=== PATIENT | female | born 1945 | race African-American/Black ===

== ENCOUNTER 2022-12-09 18:42 | Inpatient (IN) | payer MEDICAID ==
[~2022-12-09] VITALS: Ht 142.2 cm; Wt 43.2 kg
[2022-12-09] MEDS ORDERED: AMLO-708 PO (19:19)
[2022-12-09] MEDS ORDERED: QUET50TA24 PO (19:19)
[2022-12-09] MEDS ORDERED: RISP0.5T65 PO (19:19)
[2022-12-09] MEDS ORDERED: normal saline 1000ML IV soln IVB ONE (19:25)
[2022-12-09 19:28] LABS: CLARITY,URINE CLEAR (Clear); COLOR,URINE STRAW (Yellow); GLUCOSE, URINE NEGATIVE (Neg); KETONES,URINE NEGATIVE (Neg); LEUKOCYTE ESTERASE ,URINE NEGATIVE (Neg); NITRITES, URINE NEGATIVE (Neg); OCCULT BLOOD,URINE NEGATIVE (Neg); PROTEIN,URINE NEGATIVE (Neg); UROBILINOGEN,URINE 0.2 E.U/dL (0.2-1.0)
[2022-12-09 19:29] LABS: UA COLLECTION TYPE CLN CATCH MIDSTREAM
[2022-12-09 19:32] LABS: MEAN PLATELET VOLUME 6.3 FL (7.4-10.4)
[2022-12-09 19:33] LABS: BASOPHILS % (AUTO) 0.9 % (0-1); EOSINOPHILS % (AUTO) 0 % (0-6); HEMATOCRIT 38.4 % (35.0-45.0); HEMOGLOBIN 13.1 g/dl (12.0-16.0); LYMPHOCYTES # (AUTO) 1.7 X10'3 (1.1-4.8); LYMPHOCYTES % (AUTO) 29.5 % (21-51); MEAN CORPUSCULAR HEMOGLOBIN 30.8 PG (27.0-31.0); MEAN CORPUSCULAR HGB CONC 34.1 g/dL (33.0-36.5); MEAN CORPUSCULAR VOLUME 90.2 FL (78-98); MONOCYTES # (AUTO) 0.8 X10'3 (0-0.9); MONOCYTES % (AUTO) 14.1 % (2-12); NEUTROPHILS # (AUTO) 3.2 X10'3 (1.8-7.7); NEUTROPHILS % (AUTO) 55.5 % (42-75); PLATELET COUNT 337 X10'3 (140-440); RED BLOOD COUNT 4.25 X10'6 (4.20-5.60); RED CELL DISTRIBUTION WIDTH 13.8 % (11.5-14.5); WHITE BLOOD COUNT 5.7 X10'3 (4.5-11.0)
[2022-12-09 19:41] LABS: ALANINE AMINOTRANSFERASE 19 U/L (12-78); ALBUMIN 3.8 G/DL (3.4-5.0); ALBUMIN/GLOBULIN RATIO 0.8 (1.1-1.5); ALKALINE PHOSPHATASE 135 IU/L (46-116); ANION GAP 7 (8-16); ASPARTATE AMINO TRANSFERASE 19 U/L (10-37); BILIRUBIN,TOTAL 0.4 MG/DL (0.1-1.0); BLOOD UREA NITROGEN 3 MG/DL (7-18); BUN/CREATININE RATIO 4.4 (10.0-20.0); CALCIUM 9.1 MG/DL (8.5-10.1); CHLORIDE 96 MMOL/L (99-107); CREATININE 0.68 MG/DL (0.40-0.90); GLUCOSE 98 MG/DL (70-104); POTASSIUM 4.7 MMOL/L (3.5-5.1); SODIUM 134 MMOL/L (135-145); TOTAL CARBON DIOXIDE 30.9 MMOL/L (24-32); TOTAL PROTEIN 8.6 G/DL (6.4-8.2); eGFR 84 ML/MIN
[2022-12-09] MEDS ORDERED: temazepam 15mg capsule PO PRN (21:00)
--- NOTE | 2022-12-09 23:00 | NUR ---
PT FAMILY MEMBER LEFT TO GO HOME.
[2022-12-09] MEDS ORDERED: morphine 2 MG/ML inj. syringe IV PRN (23:15)
[2022-12-09] MEDS ORDERED: bisacodyl 10mg suppository rectal RC PRN (23:15)
[2022-12-09] MEDS ORDERED: magnesium hydroxide 30ml (MOM) UD suspension PO PRN (23:15)
[2022-12-09] MEDS ORDERED: ondansetron/PF 4mg/2ml inj IV PRN (23:15)
[2022-12-09] MEDS ORDERED: ondansetron 4mg rapidly disintigrating tab PO PRN (23:15)
[2022-12-09] MEDS ORDERED: diphenhydrAMINE 50 mg/ml inj IV PRN (23:15)
[2022-12-09] MEDS ORDERED: acetaminophen 650mg rectal suppository RC PRN (23:15)
[2022-12-09] MEDS ORDERED: HYDROcodone/acetaminophen 5mg/325mg tablet PO PRN (23:15)
[2022-12-09] MEDS ORDERED: diphenhydrAMINE 25mg capsule PO PRN (23:15)
[2022-12-09] MEDS: dextrose 5%-1/2 normal saline 1,000 ML IV SCH (23:15)
[2022-12-09] MEDS ORDERED: acetaminophen 325mg tablet PO PRN ×2 (23:15)
[2022-12-09] MEDS ORDERED: mag hydrox/Alum hydrox/simeth 30ml oral suspension PO PRN (23:15)
[2022-12-09] MEDS ORDERED: diazepam inj 5 MG/ML inj. IV PRN (23:25)
[2022-12-09 23:40] LABS: HEMOGLOBIN A1C 5.6 % (4.5-6.2)
[2022-12-09 23:49] LABS: MAGNESIUM 2.5 MG/DL (1.5-2.4); PHOSPHORUS 4.4 MG/DL (2.3-4.5)
--- NOTE | 2022-12-10 00:03 | NUR ---
ROUNDED ON PT, PT REMOVED TELE MONITOR, BP CUFF, SPO2 FINGER PROBE, AND PULLED OUT IV. PT NEEDS SITTER, NO SITTER AVAILABLE AT THIS TIME. PT CONFUSED AND REFUSING VITALS AT THIS TIME. PT ALSO REFUSING PLACING ANOTHER IV AT THIS TIME.
--- NOTE | 2022-12-10 00:05 | NUR ---
INSTRUCTOR MODELING PATTY NOTIFIED OF PT REFUSAL AND DR RUIZ NOTIFIED WELL.
[2022-12-10 00:11] LABS: APTT 27 SECONDS (22-32)
[2022-12-10 00:21] LABS: CREATINE KINASE 94 U/L (26-192); LIPASE < 50 U/L (73-393)
[2022-12-10] MEDS ORDERED: diazepam inj 5 MG/ML inj. IM ONE (01:25)
--- NOTE | 2022-12-10 01:26 | NUR ---
PT IN ROOM BYSELF SITWALE GONZALESP ON GURNEY AND YELLING AT ITEMS IN THE ROOM. PT MAKING SATEMENTS THAT THERE IS A "MAN BEHIND BED". PT REDIRECTED AND NOTIFIED THAT SHE IS IN THE HOSPITAL AND THERE IS NO ONE IN HER ROOM BEHIND THE BED. PER DR RUIZ, GIVE VALIUM 5MG IM PT DOES NOT HAVE AN IV AT THIS TIME DUE TO REFUSAL.
--- NOTE | 2022-12-10 01:50 | NUR ---
PT YELLING AT STAFF TO "GET OUT OF ROOM", AND HITTING AT STAFF DURING MEDICATION ADMINISTRTATION PER ORDER. PT APPEARS AGITATED AND REFUSING LAB DRAW OR VITALS AT THIS TIME. STAFF LEFT ROOM. PT NOW IN ROOM SINGING TO SELF IN ANOTHER LANGUAGE.
[2022-12-10] MEDS ORDERED: haloperidol lactate 5mg/ml inj ONE (02:51)
[2022-12-10] MEDS ORDERED: LORazepam 2 mg/ml vial ONE (02:52)
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
[2022-12-10] MEDS ORDERED: haloperidol lactate 5mg/ml inj IM ONE (03:00)
[2022-12-10] MEDS ORDERED: LORazepam 2 mg/ml vial IM ONE (03:00)
[2022-12-10] MEDS: dextrose 5%-1/2 normal saline 1,000 ML IV SCH ×2 (07:23→17:14)
[2022-12-10] MEDS: pantoprazole 40mg Tablet.DR PO SCH (07:24)
[2022-12-10 08:04] LABS: BASOPHILS % (AUTO) 0.2 % (0-1); EOSINOPHILS % (AUTO) 0 % (0-6); HEMATOCRIT 39.7 % (35.0-45.0); HEMOGLOBIN 13.5 g/dl (12.0-16.0); LYMPHOCYTES # (AUTO) 0.7 X10'3 (1.1-4.8); LYMPHOCYTES % (AUTO) 15.8 % (21-51); MEAN CORPUSCULAR HEMOGLOBIN 30.9 PG (27.0-31.0); MEAN CORPUSCULAR VOLUME 90.8 FL (78-98); MEAN PLATELET VOLUME 6.5 FL (7.4-10.4); MONOCYTES # (AUTO) 0.5 X10'3 (0-0.9); NEUTROPHILS # (AUTO) 3.4 X10'3 (1.8-7.7); PLATELET COUNT 319 X10'3 (140-440); RED BLOOD COUNT 4.37 X10'6 (4.20-5.60); RED CELL DISTRIBUTION WIDTH 13.3 % (11.5-14.5); WHITE BLOOD COUNT 4.6 X10'3 (4.5-11.0)
--- NOTE | 2022-12-10 09:10 | NUR ---
RECEIVED REPORT FROM DIANE THORNTON
--- NOTE | 2022-12-10 09:26 | NUR ---
RECEIVED REPORT FROM DIANE, 0800 MEDS NOT BEEN GIVEN DUE TO PT ASLEEP, DUE TO ACTIVAN/HALDOL SHOTS
[2022-12-10 09:31] LABS: ALANINE AMINOTRANSFERASE 21 U/L (12-78); ALBUMIN 3.7 G/DL (3.4-5.0); ALBUMIN/GLOBULIN RATIO 0.9 (1.1-1.5); ALKALINE PHOSPHATASE 130 IU/L (46-116); ANION GAP 12 (8-16); ASPARTATE AMINO TRANSFERASE 31 U/L (10-37); BILIRUBIN,TOTAL 0.5 MG/DL (0.1-1.0); BLOOD UREA NITROGEN 3 MG/DL (7-18); BUN/CREATININE RATIO 4.5 (10.0-20.0); CALCIUM 9.4 MG/DL (8.5-10.1); CHLORIDE 97 MMOL/L (99-107); CHOL/HDL RATIO 2.2 (0.00-4.99); CHOLESTEROL 226 MG/DL (0-200); CREATININE 0.67 MG/DL (0.40-0.90); GLUCOSE 97 MG/DL (70-104); HDL CHOLESTEROL 103 MG/DL (35-60); LDL CHOLESTEROL 97 MG/DL (50-100); POTASSIUM 3.4 MMOL/L (3.5-5.1); SODIUM 134 MMOL/L (135-145); TOTAL CARBON DIOXIDE 25.2 MMOL/L (24-32); TRIGLYCERIDES 28 MG/DL (20-135); eGFR > 90 ML/MIN
[2022-12-10] MEDS: docusate sod 100mg capsule PO SCH ×2 (10:00→19:43)
[2022-12-10] MEDS: amLODIPine 5mg tablet PO SCH (10:01)
[2022-12-10] MEDS: heparin, porcine 5000 units/ml vial SQ SCH ×2 (10:02→20:24)
--- NOTE | 2022-12-10 12:16 | NUR ---
ASSISTING GEOSPATIAL IMAGE ANALYST WITH PT CARE, DAUGHTER, KARIME ROMERO, AT BEDSIDE AWARE OF PLAN TO TRANFER TO 4TH FLOOR, PT EVALUATION
--- NOTE | 2022-12-10 12:40 | NUR ---
Patient in room ORTHO 4009. I have received report from Cayla THORNTON from ER and had the opportunity to ask questions and assume patient care.
--- NOTE | 2022-12-10 12:40 | NUR ---
pt taken to room 4009, family at bedside, report given to Makayla CAMERON and Gordy THORNTON.
[2022-12-10 13:00] VITALS: BP 153/95; PULSE 83; RESP 13; TEMP 97.4; O2SAT 100
[2022-12-10] MEDS ORDERED: potassium Cl 40MEQ/1/2NS 520ml 520 ML IV PRN (13:20)
[2022-12-10] MEDS ORDERED: magnesium 4gm in 100ml NS 100 ML IV PRN (13:20)
[2022-12-10] MEDS ORDERED: potassium Cl 20 mEq SR tablet PO PRN ×2 (13:20)
[2022-12-10] MEDS ORDERED: magnesium Cl slow-release 64mg tablet PO PRN (13:20)
[2022-12-10] MEDS ORDERED: magnesium 2GM in 50ml NS 50 ML IV PRN (13:20)
--- NOTE | 2022-12-10 13:28 | NUR ---
Dr. Krishnan seen patient and ordered, PT eval, Ss consult, Case management consult. Swallow eval. All consults were paged for assistance. waiting on response.
--- NOTE | 2022-12-10 14:19 | NUR ---
Patient did well with thin liquids and applesauce lower dentures are poor fitting so would recommend puree diet with thin liquids. Due to alternating LOC should be strict aspiration precautions and be a feeder.
[2022-12-10] MEDS ORDERED: BIMA2.5D EACHEYE (15:23)
--- NOTE | 2022-12-10 16:05 | NUR ---
Dr. Krishnan called back and stated yes the diet can be placed. She also stated that she doesn't want patient to have any sedatives throughout the night. She wants her to be alert and more awake. Advised Dr. Krishnan that patient is still very sleepy and unable to keep her awake to give K replacement. Per Dr. Krishnan ok to give K once fully able to drink.
[2022-12-10] MEDS: K and/or MAG REPLACEMENT MC SCH (19:43)
[2022-12-10] MEDS: risperiDONE 0.5mg tablet PO SCH (20:23)
[2022-12-10] MEDS: QUEtiapine 25mg tablet PO SCH (20:23)
[2022-12-10 22:00] VITALS: BP 133/67; PULSE 101; RESP 18; TEMP 98.2; O2SAT 95
--- NOTE | 2022-12-11 02:46 | NUR ---
Agree with Aquilino MOTOR CHECKER assessment except where I documented my findings.
[2022-12-11] MEDS: dextrose 5%-1/2 normal saline 1,000 ML IV SCH ×2 (03:23→15:15)
[2022-12-11 06:00] VITALS: BP 136/79; PULSE 93; RESP 16; TEMP 98.3; O2SAT 100
--- NOTE | 2022-12-11 06:10 | NUR ---
Patient in room ORTHO 4009. I have received report from Paul CAMERON and had the opportunity to ask questions and assume patient care.
--- NOTE | 2022-12-11 06:10 | NUR ---
Problems reprioritized. Patient report given, questions answered & plan of care reviewed with Lidia CAMERON.
[2022-12-11 06:47] LABS: BASOPHILS % (AUTO) 0.1 % (0-1); EOSINOPHILS % (AUTO) 0 % (0-6); HEMATOCRIT 35.8 % (35.0-45.0); HEMOGLOBIN 12.3 g/dl (12.0-16.0); LYMPHOCYTES # (AUTO) 0.9 X10'3 (1.1-4.8); LYMPHOCYTES % (AUTO) 11.3 % (21-51); MEAN CORPUSCULAR HEMOGLOBIN 30.9 PG (27.0-31.0); MEAN CORPUSCULAR HGB CONC 34.4 g/dL (33.0-36.5); MEAN CORPUSCULAR VOLUME 89.9 FL (78-98); MEAN PLATELET VOLUME 6.5 FL (7.4-10.4); MONOCYTES # (AUTO) 0.8 X10'3 (0-0.9); MONOCYTES % (AUTO) 11.1 % (2-12); NEUTROPHILS # (AUTO) 5.9 X10'3 (1.8-7.7); NEUTROPHILS % (AUTO) 77.5 % (42-75); PLATELET COUNT 314 X10'3 (140-440); RED BLOOD COUNT 3.98 X10'6 (4.20-5.60); RED CELL DISTRIBUTION WIDTH 13.4 % (11.5-14.5); WHITE BLOOD COUNT 7.6 X10'3 (4.5-11.0)
[2022-12-11 07:07] LABS: ALANINE AMINOTRANSFERASE 20 U/L (12-78); ALBUMIN 3.1 G/DL (3.4-5.0); ALBUMIN/GLOBULIN RATIO 0.8 (1.1-1.5); ALKALINE PHOSPHATASE 118 IU/L (46-116); ANION GAP 7 (8-16); ASPARTATE AMINO TRANSFERASE 28 U/L (10-37); BILIRUBIN,TOTAL 0.2 MG/DL (0.1-1.0); BLOOD UREA NITROGEN 5 MG/DL (7-18); BUN/CREATININE RATIO 6.8 (10.0-20.0); CALCIUM 8.6 MG/DL (8.5-10.1); CHLORIDE 96 MMOL/L (99-107); CREATININE 0.73 MG/DL (0.40-0.90); GLUCOSE 122 MG/DL (70-104); POTASSIUM 3.5 MMOL/L (3.5-5.1); SODIUM 130 MMOL/L (135-145); TOTAL CARBON DIOXIDE 26.6 MMOL/L (24-32); TOTAL PROTEIN 7.1 G/DL (6.4-8.2); eGFR > 90 ML/MIN
[2022-12-11] MEDS: pantoprazole 40mg Tablet.DR PO SCH (07:45)
[2022-12-11] MEDS: docusate sod 100mg capsule PO SCH ×2 (07:45→08:00)
[2022-12-11] MEDS: amLODIPine 5mg tablet PO SCH (07:46)
[2022-12-11] MEDS: heparin, porcine 5000 units/ml vial SQ SCH ×3 (07:48→20:47)
[2022-12-11 08:00] VITALS: RESP 16; O2SAT 100
[2022-12-11] MEDS: K and/or MAG REPLACEMENT MC SCH ×2 (08:00→20:00)
--- NOTE | 2022-12-11 08:06 | NUR ---
Patient refused her colace and heparin injection. When I explained to her that this is important to take she became angry and stated that she doesn't want to take it. non- admin medications.
--- NOTE | 2022-12-11 09:00 | NUR ---
Checked on patient and she is calm resting bed. Patient states that she is thirsty. I gave her water. Patient is not trying to get out of bed, no signs of agitation.
[2022-12-11 10:00] VITALS: BP 125/71; PULSE 85; RESP 16; TEMP 96.1; O2SAT 100
[2022-12-11] MEDS: acetaminophen 325mg tablet PO SCH ×2 (11:35→17:39)
--- NOTE | 2022-12-11 13:32 | NUR ---
PAGER ID: [phone] MESSAGE: [phone]- John Perry- Patient daughter is in the room and is ready for meeting. Pls advise? KATHY Murillo [phone]
--- NOTE | 2022-12-11 15:05 | NUR ---
GAS STATION SUPERVISOR documentation: I have reviewed and agree with all interventions, assessments performed and documented by Lidia Marx LVN.
[2022-12-11 18:00] VITALS: BP 117/66; PULSE 93; RESP 16; TEMP 98; O2SAT 100
--- NOTE | 2022-12-11 18:47 | NUR ---
Patient in room ORTHO 4009. I have received report from Paul CAMERON and had the opportunity to ask questions and assume patient care. Addendum: 12/11/22 at 1848 by Lidia Davidson LVN, LVN correction: Problems reprioritized. Patient report given, questions answered & plan of care reviewed with Paul CAMERON.
[2022-12-11] MEDS: risperiDONE 0.5mg tablet PO SCH (20:46)
[2022-12-11] MEDS: docusate sodium 100mg/10ml UD cup PO SCH (20:46)
[2022-12-11] MEDS: QUEtiapine 25mg tablet PO SCH (20:46)
[2022-12-11 22:00] VITALS: BP 133/75; PULSE 67; RESP 16; TEMP 97.9; O2SAT 97
[2022-12-12] MEDS: dextrose 5%-1/2 normal saline 1,000 ML IV SCH ×2 (00:33→11:48)
--- NOTE | 2022-12-12 02:02 | NUR ---
Agree with Magdalene CAMERON assessment except where I documented my findings.
[2022-12-12 06:00] VITALS: BP_SYST 140; BP_DIAS 56; BP_DIAS 62; PULSE 79; PULSE 80; RESP 16; RESP 17; TEMP 97.3; TEMP 97.6; O2SAT 96; O2SAT 98
[2022-12-12] MEDS: pantoprazole 40mg Tablet.DR PO SCH (07:30)
[2022-12-12 07:47] LABS: BASOPHILS % (AUTO) 0.2 % (0-1); EOSINOPHILS % (AUTO) 0 % (0-6); HEMATOCRIT 34.6 % (35.0-45.0); HEMOGLOBIN 11.8 g/dl (12.0-16.0); LYMPHOCYTES # (AUTO) 1.4 X10'3 (1.1-4.8); LYMPHOCYTES % (AUTO) 34.6 % (21-51); MEAN CORPUSCULAR HEMOGLOBIN 30.6 PG (27.0-31.0); MEAN CORPUSCULAR HGB CONC 34.2 g/dL (33.0-36.5); MEAN CORPUSCULAR VOLUME 89.6 FL (78-98); MEAN PLATELET VOLUME 6.5 FL (7.4-10.4); MONOCYTES # (AUTO) 0.6 X10'3 (0-0.9); MONOCYTES % (AUTO) 14.4 % (2-12); NEUTROPHILS # (AUTO) 2.1 X10'3 (1.8-7.7); NEUTROPHILS % (AUTO) 50.8 % (42-75); PLATELET COUNT 293 X10'3 (140-440); RED BLOOD COUNT 3.86 X10'6 (4.20-5.60); RED CELL DISTRIBUTION WIDTH 13.5 % (11.5-14.5); WHITE BLOOD COUNT 4.1 X10'3 (4.5-11.0)
[2022-12-12 07:54] LABS: ALANINE AMINOTRANSFERASE 17 U/L (12-78); ALBUMIN/GLOBULIN RATIO 0.8 (1.1-1.5); ALKALINE PHOSPHATASE 116 IU/L (46-116); ANION GAP 7 (8-16); ASPARTATE AMINO TRANSFERASE 21 U/L (10-37); BILIRUBIN,TOTAL 0.2 MG/DL (0.1-1.0); BLOOD UREA NITROGEN 9 MG/DL (7-18); BUN/CREATININE RATIO 12.2 (10.0-20.0); CALCIUM 8.5 MG/DL (8.5-10.1); CHLORIDE 96 MMOL/L (99-107); CREATININE 0.74 MG/DL (0.40-0.90); GLUCOSE 108 MG/DL (70-104); MAGNESIUM 2.1 MG/DL (1.5-2.4); POTASSIUM 4.1 MMOL/L (3.5-5.1); SODIUM 130 MMOL/L (135-145); TOTAL CARBON DIOXIDE 26.7 MMOL/L (24-32); TOTAL PROTEIN 6.7 G/DL (6.4-8.2); eGFR > 90 ML/MIN
[2022-12-12] MEDS: K and/or MAG REPLACEMENT MC SCH ×2 (08:00→20:00)
[2022-12-12] MEDS: acetaminophen 325mg tablet PO SCH ×4 (08:00→23:45)
[2022-12-12] MEDS: amLODIPine 5mg tablet PO SCH (09:16)
[2022-12-12] MEDS: docusate sodium 100mg/10ml UD cup PO SCH (09:17)
[2022-12-12] MEDS: heparin, porcine 5000 units/ml vial SQ SCH ×2 (09:18→20:00)
[2022-12-12] MEDS ORDERED: HYDROcodone/acetaminophen 5mg/325mg tablet PO PRN (09:50)
[2022-12-12] MEDS: risperiDONE 0.5mg tablet PO SCH (09:50)
[2022-12-12] MEDS ORDERED: morphine 2 MG/ML inj. syringe IV PRN (09:50)
[2022-12-12 18:00] VITALS: BP 167/84; PULSE 99; RESP 21; TEMP 98.3; O2SAT 100
[2022-12-12] MEDS: QUEtiapine 25mg tablet PO SCH (20:21)
[2022-12-12 22:00] VITALS: BP 165/74; PULSE 87; RESP 15; TEMP 98.6; O2SAT 100
--- NOTE | 2022-12-12 22:00 | NUR ---
pt pulled out IV, refusing to allow us to put in another one. will continue to assess pt to start another IV.
[2022-12-13 01:02] VITALS: BP 147/63
[2022-12-13] MEDS: dextrose 5%-1/2 normal saline 1,000 ML IV SCH (02:06)
--- NOTE | 2022-12-13 04:13 | NUR ---
SET STAFF FITTER documentation: I have reviewed and agree with assessments performed and documented by SILVIO Falcon
--- NOTE | 2022-12-13 06:21 | NUR ---
Problems reprioritized. Patient report given, questions answered & plan of care reviewed with Samson CAMERON.
--- NOTE | 2022-12-13 06:40 | NUR ---
Patient in room ORTHO 4009. I have received report from HILLARY Del Castillo and had the opportunity to ask questions and assume patient care.
[2022-12-13] MEDS: pantoprazole 40mg Tablet.DR PO SCH (07:30)
[2022-12-13] MEDS: heparin, porcine 5000 units/ml vial SQ SCH ×2 (08:00→20:00)
[2022-12-13] MEDS: acetaminophen 325mg tablet PO SCH ×2 (08:00→16:00)
[2022-12-13] MEDS: amLODIPine 5mg tablet PO SCH (08:00)
[2022-12-13] MEDS: K and/or MAG REPLACEMENT MC SCH ×2 (08:00→20:00)
[2022-12-13] MEDS: risperiDONE 0.5mg tablet PO SCH (08:00)
[2022-12-13 08:37] LABS: BASOPHILS % (AUTO) 0.1 % (0-1); EOSINOPHILS % (AUTO) 0.1 % (0-6); HEMATOCRIT 35.8 % (35.0-45.0); HEMOGLOBIN 12.2 g/dl (12.0-16.0); LYMPHOCYTES # (AUTO) 1.3 X10'3 (1.1-4.8); LYMPHOCYTES % (AUTO) 22.5 % (21-51); MEAN CORPUSCULAR HEMOGLOBIN 30.9 PG (27.0-31.0); MEAN CORPUSCULAR VOLUME 90.8 FL (78-98); MEAN PLATELET VOLUME 6.4 FL (7.4-10.4); MONOCYTES # (AUTO) 0.5 X10'3 (0-0.9); MONOCYTES % (AUTO) 9.4 % (2-12); NEUTROPHILS # (AUTO) 3.9 X10'3 (1.8-7.7); NEUTROPHILS % (AUTO) 67.9 % (42-75); PLATELET COUNT 339 X10'3 (140-440); RED BLOOD COUNT 3.95 X10'6 (4.20-5.60); RED CELL DISTRIBUTION WIDTH 13.3 % (11.5-14.5); WHITE BLOOD COUNT 5.7 X10'3 (4.5-11.0)
[2022-12-13] MEDS ORDERED: sodium chloride 1gm tablet PO SCH (08:50)
[2022-12-13] MEDS: normal saline 1000ml 1,000 ML IV SCH (08:50)
[2022-12-13 08:51] LABS: ALANINE AMINOTRANSFERASE 18 U/L (12-78); ALBUMIN 3.3 G/DL (3.4-5.0); ALBUMIN/GLOBULIN RATIO 0.8 (1.1-1.5); ALKALINE PHOSPHATASE 121 IU/L (46-116); ANION GAP 8 (8-16); ASPARTATE AMINO TRANSFERASE 23 U/L (10-37); BILIRUBIN,TOTAL 0.2 MG/DL (0.1-1.0); BLOOD UREA NITROGEN 11 MG/DL (7-18); BUN/CREATININE RATIO 13.1 (10.0-20.0); CALCIUM 8.6 MG/DL (8.5-10.1); CHLORIDE 94 MMOL/L (99-107); CREATININE 0.84 MG/DL (0.40-0.90); GLUCOSE 147 MG/DL (70-104); MAGNESIUM 1.9 MG/DL (1.5-2.4); POTASSIUM 3.4 MMOL/L (3.5-5.1); SODIUM 128 MMOL/L (135-145); TOTAL CARBON DIOXIDE 25.6 MMOL/L (24-32); TOTAL PROTEIN 7.4 G/DL (6.4-8.2); eGFR 79 ML/MIN
[2022-12-13 10:00] VITALS: BP 169/76; PULSE 90; RESP 14; TEMP 98.7; O2SAT 100
--- NOTE | 2022-12-13 15:00 | NUR ---
I have reviewed and agree with interventions, assessments, and documentation by Samson Merritt LVN.
[2022-12-13 18:00] VITALS: BP 192/76; PULSE 82; RESP 20; TEMP 98.2; O2SAT 97
[2022-12-13] MEDS: sodium chloride 1gm tablet PO SCH (18:04)
--- NOTE | 2022-12-13 18:27 | NUR ---
Problems reprioritized. Patient report given, questions answered & plan of care reviewed with HILLARY Gupta.
[2022-12-13] MEDS: QUEtiapine 25mg tablet PO SCH (19:13)
[2022-12-13 22:00] VITALS: BP 187/82; PULSE 88; RESP 15; TEMP 98; O2SAT 100
--- NOTE | 2022-12-13 22:00 | NUR ---
refused iv start.
[2022-12-14] MEDS: sodium chloride 1gm tablet PO SCH ×3 (00:10→13:00)
--- NOTE | 2022-12-14 03:15 | NUR ---
DR. RUIZ CALLED ABOUT SBP 182 AND PT REFUSING IV START.NO NEW ORDERS.WILL CONTINUE TO MONITOR.
[2022-12-14] MEDS: normal saline 1000ml 1,000 ML IV SCH (04:50)
[2022-12-14 06:00] VITALS: BP 170/70; PULSE 80; RESP 15; TEMP 98.2; O2SAT 100
[2022-12-14] MEDS: pantoprazole 40mg Tablet.DR PO SCH (07:30)
[2022-12-14 08:00] VITALS: RESP 15; O2SAT 100
[2022-12-14] MEDS: acetaminophen 325mg tablet PO SCH ×3 (08:00→16:00)
[2022-12-14] MEDS: heparin, porcine 5000 units/ml vial SQ SCH (08:00)
[2022-12-14] MEDS: amLODIPine 5mg tablet PO SCH (08:00)
--- NOTE | 2022-12-14 08:00 | NUR ---
Attempted to give patient morning medications, refused stating they were poison, became very aggrivated and told me to get out, calling me a whore and saying I was sent from the devil.
[2022-12-14] MEDS: K and/or MAG REPLACEMENT MC SCH (08:05)
--- NOTE | 2022-12-14 12:44 | NUR ---
Refused to allow staff to bring in her lunch.
--- NOTE | 2022-12-14 14:45 | NUR ---
Initial: Pt admit for dementia associated with agitation, altered level of consciousness, gait disorder, DONN, and hyponatremia per EMR. 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 Per INSURANCE ADMINISTRATIVE ASSISTANT ,pt has dentures but does not always hold them in place. Pt is currently on a vegetarian and pureed diet/thin liquids per INSURANCE ADMINISTRATIVE ASSISTANT with fluctuating average PO intake of 56% x 12 meals including 4 documented 100% intakes meeting 90% of estimated kcals needs and 78% of protein needs. Recommend adding Ensure LBM on 12/13 refusing all medication per EMR. Will continue to follow and make recommendations as appropriate. Recommendations: 1.continue vegetarian and pureed/thin liquids per INSURANCE ADMINISTRATIVE ASSISTANT 2.Ensure High Protein BIDWM; pending physician approval in EMR 3.routine bowel care 4.weekly wts Addendum: 12/14/22 at [address] Amended: Links added.
[2022-12-14] MEDS ORDERED: cloNIDine 0.1 MG/24 HOUR patch (7 day patch) TD SCH (15:45)
[2022-12-14] MEDS ORDERED: SODI1TAB2 PO (16:57)
[2022-12-14] MEDS ORDERED: NOR5T PO (16:57)
[2022-12-14] MEDS ORDERED: QUET25TA36 PO (16:57)
--- NOTE | 2022-12-14 17:45 | NUR ---
I have reviewed and agree with interventions, assessments, and documentation by Joana Issa LVN.
--- NOTE | 2022-12-14 17:55 | NUR ---
Patient discharged via POV with daughter and sister. Discharge signed by daughter, did not retain copy for our records. Questions answered. Personal belongings sent with. Patient alert and appropriate at the time of discharge.
== END 2022-12-14 17:45 | disposition home or self-care (01) | DRG 42 ==
LOC: ER 18:43 → ED HOLD 23:17 → ORTHO 4S 12-10 12:40
PROVIDERS: ADMIT Family Medicine; ATTEND Internal Medicine
DX: F03.C11 Unspecified dementia, severe, with agitation (principal); E87.1 Hypo-osmolality and hyponatremia; E78.00 Pure hypercholesterolemia, unspecified; F68.8 Other specified disorders of adult personality and behavior; E87.6 Hypokalemia; R79.89 Other specified abnormal findings of blood chemistry; R26.9 Unspecified abnormalities of gait and mobility; I12.9 Hypertensive chronic kidney disease with stage 1 through stage 4 chronic kidney disease, or unspecified chronic kidney disease; N18.9 Chronic kidney disease, unspecified; Z88.6 Allergy status to analgesic agent; Z79.899 Other long term (current) drug therapy
CPT/HCPCS: 36415; 70450; 71045; 80053; 80061; 81003; 82550; 83036; 83690; 83735; 83880; 84100; 84443; 84484; 85025; 85610; 85730; 92508; 92616; 97116; 97161; 97530; 99285; A4353; G0378; J1630; J1644; J2060; J3360; J7030; J7040; J7042